=== PATIENT | female | born 1985 | race Caucasian/White ===

== ENCOUNTER 2016-06-05 14:50 | Emergency (ER) | payer BC ==
[2016-06-05 14:57] VITALS: BP 115/69; PULSE 76; TEMP 98.3; BMI 28.3
[2016-06-05] MEDS ORDERED: predniSONE 20 MG TABLET (UD) PO ONE (16:18)
[2016-06-05] MEDS ORDERED: predniSONE 20 MG TABLET (UD) ONE (16:20)
--- NOTE | 2016-06-05 16:24 | PDOC ---
History of Present Illness - General Chief Complaint: Rash Stated Complaint: RASH ON UPPER BODY Time Seen by Provider: 06/05/16 15:45 History Source: Patient - History of Present Illness Timing/Duration: reports: other Location: reports: face, torso Past History - Past Medical History Allergies/Adverse Reactions: Allergies Allergy/AdvReac Type Severity Reaction Status Date / Time No Known Allergies Allergy Verified 06/05/16 14:57 Home Medications: Ambulatory Orders Pnv No.122/Iron/Folic Acid [ Multi Tablet] 1 each PO DAILY 05/13/15 Heparin - [(None)] 10,000 unit SQ BID 12/22/15 Oxycodone HCl/Acetaminophen [Percocet 5-325 mg Tablet -] 1 tab PO Q4H #20 tablet MDD 6 12/27/15 Prednisone [Deltasone -] 40 mg PO DAILY #8 tablet 06/05/16 Asthma: No Cancer: No Cardiac Disorders: No Diabetes: No HTN: No Seizures: No Thyroid Disease: No - Reproductive History (#): 1 Cervical CA: No Dysfunctional Uterine Bleeding: No Ectopic : No Endometrial CA: No Polycystic Ovaries: No Therapeutic (s) & number: No Tubal Ligation: No - Psycho/Social/Smoking Cessation Hx Suicidal Ideation: No Smoking History: Never smoked Have you smoked in the past 12 months: No Information on smoking cessation initiated: No Hx Alcohol Use: No Drug/Substance Use Hx: No Hx Substance Use Treatment: No Review of Systems - Review of Systems Constitutional: No: Chills, Fever Respiratory: No: Shortness of Breath Integumentary: Yes: Pruritus, Rash *Physical Exam - Vital Signs Last Vital Signs Temp Pulse Resp BP Pulse Ox 98.3 F 76 18 115/69 100 06/05/16 14:55 06/05/16 14:55 06/05/16 14:55 06/05/16 14:55 06/05/16 14:55 - Physical Exam General Appearance: Yes: Appropriately Dressed. No: Apparent Distress HEENT: positive: Normal Voice Neck: positive: Supple Respiratory/Chest: positive: Lungs Clear, Normal Breath Sounds. negative: Respiratory Distress, Stridor Integumentary: positive: Dry, Warm, Rash (Hives to face and trunk) Neurologic: positive: Fully Oriented, Alert, Normal Mood/Affect Medical Decision Making - Medical Decision Making 06/05/16 16:19 31-year-old female, denies any past medical history here with hives to face and upper body 5 days. Has been taking Benadryl with little relief. No respiratory symptoms or tongue swelling. Denies any known drug or food allergies. No history of similar episode. See exam Hives Stable w/ no resp complaints No obvious inciting agents DC w/ Benadryl and pred given severity of sxs Reasons to return d/w pt 06/05/16 16:24 *DC/Admit/Observation/Transfer Diagnosis at time of Disposition: Hives - Discharge Dispostion Disposition: HOME Condition at time of disposition: Good - Prescriptions Prescriptions: Prednisone [Deltasone -] 40 mg PO DAILY #8 tablet - Patient Instructions Printed Discharge Instructions: [place] Additional Instructions: Take prednisone as directed and continue taking Benadryl every 6 hours as needed. Return to ER for worsening of symptoms
== END 2016-06-05 16:25 | disposition home or self-care (01) ==
LOC: JERFT 14:50
DX: L50.9 Urticaria, unspecified (principal)
CPT/HCPCS: 99281-25

== ENCOUNTER 2018-06-10 19:20 | Emergency (ER) | payer BC ==
--- NOTE | 2018-06-10 19:28 | PDOC ---
Rapid Medical Evaluation Time Seen by Provider: 06/10/18 19:26 Medical Evaluation: Allergies Allergy/AdvReac Type Severity Reaction Status Date / Time No Known Allergies Allergy Verified 06/05/16 14:57 06/10/18 19:26 I have done a brief in-person assessment of this patient. The patient presents with a chief complaint of left calf pain x 3 days. Patient reports history of clot in the same leg. States pain radiates into thighs. Denies shortness of breath. No ocp use Pertinent physical exam findings NAD even and unlabored breathing no edema of left leg mild tenderness of left calf I have ordered the following: doppler The patient will proceed to the Ed for further evaluation. 06/10/18 21:46 Dx: calf pain
[2018-06-10 19:31] VITALS: BP 143/80; PULSE 82; TEMP 97.8; BMI 31.8
--- NOTE | 2018-06-10 21:28 | PDOC ---
History of Present Illness - General Chief Complaint: Pain, Acute Stated Complaint: PAIN IN LEGS Time Seen by Provider: 06/10/18 19:26 History Source: Patient - History of Present Illness Initial Comments: 06/10/18 21:23 33 yeqar old female left calf pain x 3 days. had blood clot three years ago while patient was on lovenox. currently not on any blood thinners. patient reports history of sciatica pain while . patient reports that she started a new job requiring to sit down for the entire day believes this is the cause of the pain. patient reports taking advil and ibuprofen with some relief in pain. reports pain radiating from lower back to left leg. denies SOB, chest pain, pleuritic pain, fever/ chills, injury/ trauma 06/10/18 21:28 Past History - Past Medical History Allergies/Adverse Reactions: Allergies Allergy/AdvReac Type Severity Reaction Status Date / Time No Known Allergies Allergy Verified 06/10/18 19:28 Home Medications: Ambulatory Orders No122/Iron/Folic Acid [ Multi Tablet] 1 each PO DAILY 05/13/15 Heparin - [(None)] 10,000 unit SQ BID 12/22/15 Oxycodone HCl/Acetaminophen [Percocet 5-325 mg Tablet -] 1 tab PO Q4H #20 tablet MDD 6 12/27/15 predniSONE [Deltasone -] 40 mg PO DAILY #8 tablet 06/05/16 Cephalexin Monohydrate [Keflex -] 500 mg PO BID #20 capsule 06/10/18 Cyclobenzaprine HCl [Flexeril -] 10 mg PO TID PRN #7 tablet 06/10/18 Ibuprofen 600 mg PO QID PRN #20 tablet 06/10/18 Asthma: No Cancer: No Cardiac Disorders: No COPD: No Diabetes: No HTN: No Seizures: No Thyroid Disease: No - Reproductive History (#): 1 Cervical CA: No Dysfunctional Uterine Bleeding: No Ectopic : No Endometrial CA: No Polycystic Ovaries: No Therapeutic (s) & number: No Tubal Ligation: No - Suicide/Smoking/Psychosocial Hx Smoking History: Never smoked Have you smoked in the past 12 months: No Hx Alcohol Use: No Drug/Substance Use Hx: No Hx Substance Use Treatment: No Review of Systems - Review of Systems Able to Perform ROS?: Yes Is the patient limited Turkmen proficient: No Constitutional: No: Symptoms Reported, See HPI, Chills, Diaphoresis, Fever, Loss of Appetite, Malaise, Night Sweats, Weakness, Weight Stable, Unintentional Wgt. Loss, Unexplained wgt Loss, Other Respiratory: No: Symptoms reported, See HPI, Cough, Orthopnea, Shortness of Breath, SOB with Exertion, SOB at Rest, Stridor, Wheezing, Productive cough, Hemoptysis, Other : Yes: Symptoms Reported, See HPI, Burning, Dysuria, Discharge, Frequency, Flank Pain, Hematuria, Incontinence, Pain, Urgency, Testicular Mass, Testicular Swelling, Lesions, Testicular Pain, Other Musculoskeletal: Yes: Back Pain. No: Symptoms Reported, See HPI, Gout, Joint Pain, Joint Swelling, Muscle Pain, Muscle Weakness, Neck Pain, Joint Stiffness, Other *Physical Exam - Vital Signs Last Vital Signs Temp Pulse Resp BP Pulse Ox 97.8 F 82 18 143/80 100 06/10/18 19:29 06/10/18 19:29 06/10/18 19:29 06/10/18 19:29 06/10/18 19:29 - Physical Exam General Appearance: Yes: Appropriately Dressed Respiratory/Chest: positive: Lungs Clear, Normal Breath Sounds Female Pelvic Exam: positive: normal external exam Gastrointestinal/Abdominal: positive: Normal Bowel Sounds, Soft Musculoskeletal: positive: Normal Inspection, Other Moderate Sedation - Procedure Monitoring Vital Signs: Procedure Monitoring Vital Signs Temperature 97.8 F 06/10/18 19:29 Pulse Rate 82 06/10/18 19:29 Respiratory Rate 18 06/10/18 19:29 Blood Pressure 143/80 06/10/18 19:29 O2 Sat by Pulse Oximetry (%) 100 06/10/18 19:29 *DC/Admit/Observation/Transfer Diagnosis at time of Disposition: Sciatic leg pain, Cystitis - Discharge Dispostion Disposition: HOME - Prescriptions Prescriptions: Cephalexin Monohydrate [Keflex -] 500 mg PO BID #20 capsule Cyclobenzaprine HCl [Flexeril -] 10 mg PO TID PRN #7 tablet PRN Reason: Back Pain Ibuprofen 600 mg PO QID PRN #20 tablet PRN Reason: Back Pain - Referrals Referrals: Tristan Kohli MD [Staff Physician] - Call tomorrow - Patient Instructions Printed Discharge Instructions: DI for Sciatica Additional Instructions: take ibuprofen every 6 hours as needed for pain take cephalexin as prescribed take flexeril as prescribed, do not drive after taking this medication follow up with your doctor as soon as possible - Post Discharge Activity Forms/Work/School Notes: Back to Work
[2018-06-10] MEDS ORDERED: KETOROLAC TROMETHAMINE 30 MG/1 ML VIAL IM ONE (21:34)
[2018-06-10] MEDS ORDERED: diazePAM 5 MG TABLET PO ONE (21:34)
[2018-06-10 21:47] LABS: URINE APPEARANCE SLCLOUDY; URINE BILIRUBIN NEGATIVE (<2.0 mg/dL); URINE COLOR YELLOW; URINE GLUCOSE (UA) NEGATIVE (NEGATIVE); URINE KETONE NEGATIVE (NEGATIVE); URINE LEUK ESTERASE 1+ (NEGATIVE); URINE NITRITE NEGATIVE (NEGATIVE); URINE PROTEIN NEGATIVE (NEGATIVE); URINE UROBILINOGEN NEGATIVE mg/dL (0.2-1.0)
[2018-06-10 21:49] LABS: HCG,QUALITATIVE URINE Negative
[2018-06-10 21:51] LABS: EPI CELLS MODERATE /HPF (FEW); URINE BACTERIA RARE /hpf (NONE SEEN); URINE MUCUS RARE
[2018-06-10] MEDS ORDERED: KETOROLAC TROMETHAMINE 30 MG/1 ML VIAL ONE (22:12)
[2018-06-10] MEDS ORDERED: diazePAM 5 MG TABLET ONE (22:12)
== END 2018-06-10 23:30 | disposition home or self-care (01) ==
LOC: JER 19:20
PROC: 3E0233Z Introduction of Anti-inflammatory into Muscle, Percutaneous Approach (ICD-10-PCS; principal; 2018-06-10)
DX: N30.90 Cystitis, unspecified without hematuria (principal); M54.30 Sciatica, unspecified side; Z86.718 Personal history of other venous thrombosis and embolism
CPT/HCPCS: 81003; 81015; 84703; 93971-TC; 99283-25